=== PATIENT | male | born 1950 | race Caucasian/White ===

== ENCOUNTER 2016-10-31 11:03 | Inpatient (IN) ==
[2016-10-31 12:10] LABS: MANUAL DIFF NEEDED? NO
[2016-10-31 12:21] LABS: BASO% 0.7 % (0.0-0.8); EOS# 0.16 X1000 (0.0-0.7); EOS% 2.9 % (0.0-10.0); HEMATOCRIT 37.5 % (42.0-52.0); HEMOGLOBIN 11.8 g/dL (14.0-18.0); LYMPH# 0.76 X1000 (1.2-3.4); LYMPH% 13.6 % (20.5-51.1); MCH 31.5 PG (27-31); MCHC 31.5 g/dL (33-37); MONO# 0.69 X1000 (0.11-0.59); MONO% 12.3 % (1.7-9.3); MPV 10.6 FL (7.4-10.4); NEUT% 70.5 % (42.2-75.2); PLT 250 X1000 (130-400); RBC 3.75 XMIL (4.7-6.1)
[2016-10-31 12:25] LABS: INR 1.45; PROTIME 15.4 Seconds (9.2-11.7)
[2016-10-31] MEDS ORDERED: DILAUDID ONE (12:44)
[2016-10-31] MEDS ORDERED: ZOFRAN ONE (12:44)
[2016-10-31] MEDS ORDERED: DILAUDID IV ONE (12:45)
[2016-10-31 12:52] LABS: AGAP 11; ALBUMIN 3.2 g/dL (3.5-5.0); ALKALINE PHOSPHATASE 118 U/L (32-122); BUN 23 mg/dL (8-22); CALCIUM 8.9 mg/dL (8.8-10.2); CHLORIDE 92 mmol/L (98-107); COSMO 279; GOT 19 U/L (10-34); GPT 13 U/L (10-44); POTASSIUM 4.5 mmol/L (3.5-5.1); SODIUM 138 mmol/L (136-145); TCO2 35 mmol/L (25-35); TOTAL BILIRUBIN 1.24 mg/dL (0.20-1.00); TOTAL PROTEIN 7.3 g/dL (6.3-8.3)
--- NOTE | 2016-10-31 13:58 | HISTORY AND PHYSICAL ---
HISTORY OF PRESENT ILLNESS: This is a 65-year-old, just recently discharged from this institution on 10/29 to [facility]. By his report, he has had continued swelling in his legs and scrotum, unable to void and concerned about the increased swelling, was sent back over here. This is a 65-year-old who has a history of chronic lower extremity venous stasis, severe, peripheral arterial disease, diastolic heart failure. History of chronic DVTs and PEs. Most recently diagnosed with right atrial appendage thrombus and pulmonary embolus, treated at [facility]. He is currently on Coumadin therapy. Was discharged from [facility] about 3 weeks ago and then he came here to our hospital on 10/10/2016. At the time of discharge from [facility], was discharged on Coumadin therapy. Increasing shortness of breath was his complaint. He returns now with increased swelling in his scrotum, unable to void. Increased swelling in his legs. Unable to walk very well. REVIEW OF PAST MEDICAL HISTORY: 1. COPD on home O2. 2. History of chronic PE and DVT status post [place] filter. Chronic anticoagulation. 3. Diastolic heart failure. 4. Severe PAD. Chronic lower extremity venous stasis. 5. Morbid obesity. PAST SURGICAL HISTORY: Left knee replacement. Umbilical hernia repair. [place] filter. SOCIAL HISTORY: Patient quit smoking some time ago. He is at [facility]. Just sent there on the . Does not smoke or drink or use drugs. FAMILY HISTORY: Noncontributory. REVIEW OF SYSTEMS: His main complaint is swelling. HEENT: Unremarkable. Respiratory: Says his breathing is okay. GI/: He is mainly concerned about swelling and inability to void. No change in bowels. No blood in the bowels. No dark, tarry stools. Chest/Cardiac: He denies any chest pain or palpitations. Neurologic: No focal neurologic complaints. PHYSICAL EXAMINATION: VITAL SIGNS: Temperature 97.4, pulse 80, respirations 20, blood pressure 106/72. LUNGS: Clear in all lung maldonado. CARDIOVASCULAR: Regular rate without murmur or S3. ABDOMEN: Soft. SKIN: Warm and dry. INTEGUMENT/EXTREMITIES: He has marked edema that goes really from his waist, posterior upper thoracic area and flanks, and swelling down in his legs and scrotum. Dr. Vo was able to put a Stuart catheter in. HEIGHT/WEIGHT: Height is 5 feet 2 inches, weight is 300 pounds. LAB: White count 5600, hematocrit was 37, platelet count 250,000. Sodium 138, potassium 4.5, chloride 92, BUN 23, creatinine 1.2. Blood sugar 93, albumin is 3.2. ProTime is 15.4, INR 1.45. ASSESSMENT AND PLAN: 1. Chronic venous stasis. Diastolic dysfunction. Anasarca going from his waist down. We need to try and diurese this off. His kidney function appears to be good. Creatinine 1.2. We are going to put him on 40 of Lasix IV q.12. We will restrict the input to less than 1500 mL a day and see if we can pull off some of this fluid. Will try and put some stockings on. 2. History of pulmonary thromboembolism. [place] filter. History of multiple deep vein thromboses. He needs to stay on anticoagulation and this is probably part of his problem. So we will increase the Coumadin. I am going to put him on full dose Lovenox for now until his Pro-time is above 20, his INR above 2. 3. Diastolic heart failure, aware. 4. Obesity. DIAGNOSTIC STUDIES: Note he had a pulmonary arteriogram on 09/11/2016. Questionable tiny filling defect in a high order branch of the left pulmonary artery. Small filling defect in the right atrial appendage. Thrombus should be considered. Cardiomegaly. There is a noncalcified nodule 1.1 cm left lung base. Moderate ascites and anasarca. Echocardiogram. Interventricular septum was 1.2. Left ventricular posterior wall 1.2. Diastolic diameter 4.6 cm. Left atrium 4 cm. Right ventricle dilated 6.6 cm. Normal left ventricular cavity size. Ejection fraction 55%. Right ventricle severely dilated with severely reduced right ventricular systolic function. There is bilateral enlargement, right atrium enlarged. Pulmonic systolic pressure is 64-70.
[2016-10-31 14:19] LABS: URINE MICRO REVIEW NEEDED? NO; URINE SOURCE CATH
[2016-10-31 14:22] LABS: BILIRUBIN URINE NEGATIVE (NEGATIVE); BLOOD URINE NEGATIVE (NEGATIVE); COLOR YELLOW; GLUCOSE URINE NEGATIVE (NEGATIVE); LEUKOCYTES URINE TRACE (NEGATIVE); NITRITE URINE NEGATIVE (NEGATIVE); PH URINE 5.5; PROTEIN URINE TRACE mg/dL (NEGATIVE); SP GRAVITY URINE 1.015; TURBIDITY URINE CLEAR (CLEAR); UR EPITHELIAL CELLS <10 /HPF (<10); URINE BACTERIA NEGATIVE /HPF; URINE CULTURE NEEDED? YES; URINE RBC <10 /HPF (<10); URINE WBC <10 /HPF (<10); UROBILINOGEN URINE NORMAL (NORMAL)
--- NOTE | 2016-10-31 14:25 | PROVIDER DOCUMENTATION ---
HPI-Male Problem - General Chief Complaint: Male Stated Complaint: male gu, cellulitis to lower extremity Time Seen by Provider: 10/31/16 11:15 Source: patient Allergies/Adverse Reactions: Patient Allergies Allergy/AdvReac Type Severity Reaction Status Date / Time Penicillins Allergy RASH Verified 10/31/16 11:16 Home Medications: Albuterol 2.5MG/Ipratrop 0.5MG [Duoneb (A & A)] 3 ml INH RTTID 10/10/16 Furosemide [Lasix] 80 mg PO DAILY 10/10/16 Guaifenesin [Mucus ER] 600 mg PO BID 10/10/16 Hydrocodone/Acetaminophen [Cosby 7.5-325 Tablet] 1 each PO Q4-6H PRN PRN - History of Present Illness-Male Nature of Presenting Problem: Discharged 10/29 after admission for CHF and respiratory failure. Was at [facility] and has had increasing edema of legs and scrotum. Increasingly painful. Has had difficulty with urination since last night. Location of Complaint: reports: groin, scrotal Radiation: reports: suprapubic Quality of Pain: reports: aching, indigestion Onset/Duration: reports: gradual, other (since discharge) Review of Systems - Adult - REVIEW OF SYSTEMS - ADULT Constitutional: reports: see HPI Eyes: reports: no symptoms reported Ears, Nose, Mouth & Throat: reports: no symptoms reported Cardiovascular: reports: chest pain, irregular heart rate Respiratory: reports: cough, shortness of breath Gastrointestinal: reports: no symptoms reported Genitourinary: reports: see HPI, dysuria Musculoskeletal: reports: muscle aches Integumentary: reports: other (marked edema of legs with lower leg ulceration) Past History - Adult - PAST MEDICAL HISTORY-ADULT Review of Records: reports: Old Records Reviewed, Medications Reviewed Major Childhood Illnesses: reports: denies history Cardiovascular: reports: A-Fib, blood clots, CHF, HTN Respiratory: reports: COPD - PRIOR SURGERIES/PROCEDURES Surgical/Procedure History: reports: hernia repair - IMMUNIZATION STATUS Childhood Immunizations: See Nurse Assessment Flu Vaccine: See Nurse Assessment - FAMILY HISTORY Family History: reviewed, not pertinent Physical Exam-General - PHYSICAL EXAM-ADULT Initial Vital Signs Reviewed: Yes - CONSTITUTIONAL General Appearance: alert, no apparent distress - EYES Eyes: PERRL/EOMI - HEAD, EARS, NOSE, MOUTH & THROAT [facility]: normal ENT inspection - NECK Neck: non-tender, full range of motion, supple, normal inspection - RESPIRATORY Respiratory: chest non-tender, lungs clear, normal breath sounds - CARDIOVASCULAR Cardiovascular: no JVD, no murmur, irregularly irregular - GASTROINTESTINAL (ABDOMEN) Abdominal Exam: normal bowel sounds, soft, tenderness (lower abdominal tenderness) - GENITOURINARY Male Genitalia: scrotal swelling (dramatic scrotal swelling, diffuse tenderness to palp, urethra not visualized. erythema L lateral scrotum) - MUSCULOSKELETAL Back Exam: normal inspection, no CVA tenderness Extremity: swelling (edema to thighsB, B lower legs with dressings for ulcerations) - NEUROLOGIC Neurologic: no motor/sensory deficits Progress - PLAN OF CARE/RESULTS Progress/Plan/Lab Results: Laboratory Tests 10/31/16 10/31/16 10/31/16 12:00 12:00 12:00 WBC 5.60 RBC 3.75 L Hgb 11.8 L Hct 37.5 L MCV 100.0 H MCH 31.5 H MCHC 31.5 L RDW Std Deviation 15.2 H Plt Count 250 MPV 10.6 H Immature Gran % (Auto) 0.0 Neut % (Auto) 70.5 Lymph % (Auto) 13.6 L [place] % (Auto) 12.3 H Eos % (Auto) 2.9 Baso % (Auto) 0.7 Immature Gran # (Auto) 0.00 Neut # 3.95 Lymph # 0.76 L [place] # 0.69 H Eos # 0.16 Baso # 0.04 PT 15.4 H INR 1.45 Sodium 138 Potassium 4.5 Chloride 92 L Carbon Dioxide 35 Anion Gap 11 BUN 23 H Creatinine 1.2 Estimated GFR/1.73 m2 > 60 BUN/Creatinine Ratio 19 Glucose 93 Calculated Osmolality 279 Calcium 8.9 Total Bilirubin 1.24 H AST 19 ALT 13 Alkaline Phosphatase 118 Total Protein 7.3 Albumin 3.2 L Globulin 4.1 Albumin/Globulin Ratio 0.8 Urine Source Urine Color Urine Turbidity Urine pH Ur Specific [place] Urine Protein Ur Glucose (Stick) Ur Ketones (Stick) Urine Blood Urine Nitrite Urine Bilirubin Urobilinogen Dipstick Urine Leukocytes Urine WBC (Auto) Urine RBC (Auto) U Epithel Cells (Auto) Urine Bacteria (Auto) 10/31/16 14:00 WBC RBC Hgb Hct MCV MCH MCHC RDW Std Deviation Plt Count MPV Immature Gran % (Auto) Neut % (Auto) Lymph % (Auto) [place] % (Auto) Eos % (Auto) Baso % (Auto) Immature Gran # (Auto) Neut # Lymph # [place] # Eos # Baso # PT INR Sodium Potassium Chloride Carbon Dioxide Anion Gap BUN Creatinine Estimated GFR/1.73 m2 BUN/Creatinine Ratio Glucose Calculated Osmolality Calcium Total Bilirubin AST ALT Alkaline Phosphatase Total Protein Albumin Globulin Albumin/Globulin Ratio Urine Source CATH Urine Color YELLOW Urine Turbidity CLEAR Urine pH 5.5 Ur Specific [place] 1.015 Urine Protein TRACE A Ur Glucose (Stick) NEGATIVE Ur Ketones (Stick) NEGATIVE Urine Blood NEGATIVE Urine Nitrite NEGATIVE Urine Bilirubin NEGATIVE Urobilinogen Dipstick NORMAL Urine Leukocytes TRACE A Urine WBC (Auto) <10 Urine RBC (Auto) <10 U Epithel Cells (Auto) <10 Urine Bacteria (Auto) NEGATIVE Vital Signs Temp Pulse Resp BP Pulse Ox 10/31/16 16:18 105 H 16 93 L 10/31/16 15:24 98.2 F 105 H 16 97/70 91 L 10/31/16 11:10 97.4 F L 80 20 106/72 100 Penicillins Allergy (Verified 10/31/16 11:16) RASH Albuterol 2.5MG/Ipratrop 0.5MG [Duoneb (A & A)] 3 ml INH RTTID 10/10/16 Furosemide [Lasix] 80 mg PO DAILY 10/10/16 Guaifenesin [Mucus ER] 600 mg PO BID 10/10/16 Hydrocodone/Acetaminophen [[place] 7.5-325 Tablet] 1 each PO Q4-6H PRN PRN Albuterol 2.5MG/Ipratrop 0.5MG [Duoneb (A & A)] 3 ml INH Q2H PRN PRN #0 neb CefUROXIME [Ceftin] 500 mg PO Q12H #0 tablet 10/29/16 Digoxin [Lanoxin] 125 microgm PO DAILY #0 tablet 10/29/16 Doxycycline 100 mg PO BID #0 capsule 10/29/16 Ergocalciferol (Vitamin D2) [Vitamin D] 50,000 unit PO Q7D #0 capsule 10/29/16 Folic Acid 1 mg PO DAILY #0 tablet 10/29/16 Isosorbide Dinitrate [Isordil] 10 mg PO BID #0 tablet 10/29/16 Metoprolol [Lopressor] 25 mg PO BID #0 tablet 10/29/16 Warfarin [Coumadin] 5 mg PO QHS #0 tablet 10/29/16 Dietary Diet Heart Healthy Diet Start SatOct 31 1436 I&O 10/30/16 10/31/16 11/01/16 06:59 06:59 06:59 Output Total 420 Balance -420 Laboratory 10/31/16 10/31/16 10/31/16 14:00 12:00 12:00 WBC RBC Hgb Hct MCV MCH MCHC RDW Std Deviation Plt Count MPV Immature Gran % (Auto) Neut % (Auto) Lymph % (Auto) [place] % (Auto) Eos % (Auto) Baso % (Auto) Immature Gran # (Auto) Neut # Lymph # [place] # Eos # Baso # PT 15.4 H INR 1.45 Sodium 138 Potassium 4.5 Chloride 92 L Carbon Dioxide 35 Anion Gap 11 BUN 23 H Creatinine 1.2 Estimated GFR/1.73 m2 > 60 BUN/Creatinine Ratio 19 Glucose 93 Calculated Osmolality 279 Calcium 8.9 Total Bilirubin 1.24 H AST 19 ALT 13 Alkaline Phosphatase 118 Total Protein 7.3 Albumin 3.2 L Globulin 4.1 Albumin/Globulin Ratio 0.8 Urine Source CATH Urine Color YELLOW Urine Turbidity CLEAR Urine pH 5.5 Ur Specific [place] 1.015 Urine Protein TRACE A Ur Glucose (Stick) NEGATIVE Ur Ketones (Stick) NEGATIVE Urine Blood NEGATIVE Urine Nitrite NEGATIVE Urine Bilirubin NEGATIVE Urobilinogen Dipstick NORMAL Urine Leukocytes TRACE A Urine WBC (Auto) <10 Urine RBC (Auto) <10 U Epithel Cells (Auto) <10 Urine Bacteria (Auto) NEGATIVE 10/31/16 12:00 WBC 5.60 RBC 3.75 L Hgb 11.8 L Hct 37.5 L MCV 100.0 H MCH 31.5 H MCHC 31.5 L RDW Std Deviation 15.2 H Plt Count 250 MPV 10.6 H Immature Gran % (Auto) 0.0 Neut % (Auto) 70.5 Lymph % (Auto) 13.6 L [place] % (Auto) 12.3 H Eos % (Auto) 2.9 Baso % (Auto) 0.7 Immature Gran # (Auto) 0.00 Neut # 3.95 Lymph # 0.76 L [place] # 0.69 H Eos # 0.16 Baso # 0.04 PT INR Sodium Potassium Chloride Carbon Dioxide Anion Gap BUN Creatinine Estimated GFR/1.73 m2 BUN/Creatinine Ratio Glucose Calculated Osmolality Calcium Total Bilirubin AST ALT Alkaline Phosphatase Total Protein Albumin Globulin Albumin/Globulin Ratio Urine Source Urine Color Urine Turbidity Urine pH Ur Specific [place] Urine Protein Ur Glucose (Stick) Ur Ketones (Stick) Urine Blood Urine Nitrite Urine Bilirubin Urobilinogen Dipstick Urine Leukocytes Urine WBC (Auto) Urine RBC (Auto) U Epithel Cells (Auto) Urine Bacteria (Auto) - EKG 1 Time of EKG reading by physician:: 14:23 EKG Read and Signed by:: Savannah Quintanilla EKG Interpretation (*Must complete 3 of following elements*): Abnormal Rate: 87 Rhythm: atrial flutter with variable block QRS: RBB - CONSULTS/PCP/HOSPITALIST Notification #1 *Consult/PCP/Hospitalist*: urology inserted miller cather Consult Disposition: Will see in ED #2 Consult: hospitalist notified- Dr Gee to see patient Departure - Departure Time of Disposition Order: 14:00 DIAGNOSIS: Scrotal edema, CHF (congestive heart failure) Disposition: ADMITTED INPATIENT 09 Certified Medical Emergency: Emergent Condition: Poor
[2016-10-31] MEDS ORDERED: ZOFRAN IV PRN (14:32)
[2016-10-31] MEDS ORDERED: TYLENOL PO PRN (14:32)
[2016-10-31] MEDS: NORCO-7.5 PO PRN ×2 (15:02→21:51)
[2016-10-31] MEDS: DUONEB (A & A) INH SCH ×2 (16:17→21:24)
[2016-10-31] MEDS: CEFTIN PO SCH (17:58)
[2016-10-31] MEDS: LASIX IV SCH (21:50)
[2016-10-31] MEDS: DOXYCYCLINE PO SCH (21:50)
[2016-10-31] MEDS: LOVENOX SUBQ SCH (21:50)
[2016-10-31] MEDS: COUMADIN PO SCH (21:50)
[2016-10-31] MEDS: MUCINEX PO SCH (21:51)
[2016-10-31] MEDS: LOPRESSOR PO SCH (21:53)
[2016-10-31] MEDS: ISORDIL PO SCH (21:53)
[2016-11-01 05:54] LABS: MANUAL DIFF NEEDED? NO
[2016-11-01 05:58] LABS: BASO% 0.6 % (0.0-0.8); EOS# 0.17 X1000 (0.0-0.7); EOS% 2.5 % (0.0-10.0); LYMPH# 0.98 X1000 (1.2-3.4); LYMPH% 14.2 % (20.5-51.1); MCH 31.5 PG (27-31); MCHC 31.6 g/dL (33-37); MCV 99.7 FL (81-99); MONO# 0.91 X1000 (0.11-0.59); MONO% 13.2 % (1.7-9.3); MPV 10.6 FL (7.4-10.4); NEUT% 69.5 % (42.2-75.2); PLT 266 X1000 (130-400); RBC 3.81 XMIL (4.7-6.1)
[2016-11-01 06:08] LABS: ALBUMIN 3.1 g/dL (3.5-5.0); CALCIUM 8.9 mg/dL (8.8-10.2); POTASSIUM 4.3 mmol/L (3.5-5.1); PREALBUMIN 7.4 mg/dL (20-40); TOTAL BILIRUBIN 1.33 mg/dL (0.20-1.00); TOTAL PROTEIN 7.3 g/dL (6.3-8.3)
[2016-11-01 06:28] LABS: FREE T4 1.15 ng/dL (0.93-1.70)
[2016-11-01] MEDS: CEFTIN PO SCH ×2 (06:30→17:39)
[2016-11-01] MEDS: LANOXIN PO SCH (06:31)
[2016-11-01] MEDS: NORCO-7.5 PO PRN ×2 (06:35→13:17)
[2016-11-01] MEDS: PRILOSEC PO SCH (06:35)
[2016-11-01 06:39] LABS: INR 1.49; PROTIME 15.9 Seconds (9.2-11.7); PTT 34.2 Seconds (22.0-36.0)
--- NOTE | 2016-11-01 06:46 | EKG Report ---
Test Performed on : 11/01/2016 06:11:19 AM Test Reason : chest pain Blood Pressure : / mmHG Vent. Rate : 091 BPM Atrial Rate : 256 BPM P-R Int : 000 ms QRS Dur : 194 ms QT Int : 428 ms P-R-T Axes : 000 163 013 degrees QTc Int : 526 ms Atrial flutter. with variable AV block. Right bundle branch block Abnormal ECG When compared with ECG of 31-OCT-2016 14:09, (Unconfirmed) T wave inversion less evident in Anterior leads Confirmed by Renetta Babcock MD ([id number]) on 11/01/2016 10:15:19 AM
--- NOTE | 2016-11-01 08:24 | PROGRESS NOTE ---
DATE: 11/01/2016 SUBJECTIVE: Mr. Cohen does feel better. He can tell the swelling has gone down in both the scrotum and his flanks, so, he feels markedly better than yesterday. OBJECTIVE: Vital Signs: Afebrile, temp 98 degrees. Pulse 89. Respirations 20. Blood pressure 90/68. Lungs: Clear in all lung maldonado. Cardiovascular: Regular rhythm and rate without murmur or S3. Abdomen: Soft. Skin: Warm and dry. INTAKE AND OUTPUT: Good urine output. LABORATORY DATA: White count 6890. Hematocrit 38. Platelet count 266,000. Chemistry: Sodium 133, potassium 4.3, chloride 90, bicarb 35, BUN 24, creatinine 1.3. ASSESSMENT AND PLAN: 1. Anasarca, marked swelling in the scrotum, his legs, and flank. Continue diuresis. Renal function looks good. 2. History of pulmonary thromboembolism. He has a [place] filter, is anticoagulated. Will increase his Coumadin and continue full dose Lovenox until Coumadin is therapeutic, for ProTime of 20, INR above 2. 3. Diastolic heart failure, aware. 4. Obesity. 5. General weakness, deconditioning. Continue physical therapy. 6. Chronic venous stasis, chronic venous stasis ulcers. Make sure Wound Care is following him for his feet.
[2016-11-01] MEDS: LASIX IV SCH ×2 (10:13→22:54)
[2016-11-01] MEDS: LOVENOX SUBQ SCH ×2 (10:16→22:54)
[2016-11-01] MEDS: MUCINEX PO SCH ×2 (10:18→22:53)
[2016-11-01] MEDS: DOXYCYCLINE PO SCH ×2 (10:20→22:52)
[2016-11-01] MEDS: LOPRESSOR PO SCH ×2 (10:21→22:54)
[2016-11-01] MEDS: FOLIC ACID PO SCH (10:21)
[2016-11-01] MEDS: ISORDIL PO SCH ×2 (10:22→22:54)
[2016-11-01] MEDS: DUONEB (A & A) INH SCH ×3 (10:56→19:17)
[2016-11-01] MEDS ORDERED: CALMOSEPTINE OINTMENT TOP PRN (13:29)
--- NOTE | 2016-11-01 18:52 | CONSULTATION ---
DATE OF CONSULTATION: 10/31/2016 CONSULTING PHYSICIAN: Emergency department. Consultation for Stuart catheter placement, scrotal swelling and penile swelling. HISTORY OF PRESENT ILLNESS: A 65-year-old male, whom I have known with history of heart failure, severe peripheral vascular disease, lower extremity venous stasis who was recently hospitalized secondary to a pulmonary embolus as well as shortness of breath and lower extremity swelling. He was [facility] from [facility] to [facility]. He reports continuous swelling in his legs and scrotum with eventual inability to void for 24 hours. He was brought to the emergency room. The nursing staff reportedly tried to introduce Stuart catheter but due to penile and scrotal edema were unable to do so. Urology was consulted. The patient denies history of surgeries or previous urologic problems. He reports feeling full and uncomfortable and desires intervention. PAST MEDICAL HISTORY: 1. Deep venous thrombosis and pulmonary embolus. 2. COPD. 3. Heart failure. 4. Peripheral vascular disease. 5. Obesity. PAST SURGICAL HISTORY: Left knee arthroplasty, umbilical hernia repair, IVC filter. ALLERGIES: Penicillins. HOME MEDICATIONS: Lasix, Coumadin, DuoNeb, Ceftin, vitamin D, [place], metoprolol, Prilosec, omeprazole, digoxin, folic acid. SOCIAL HISTORY: Former smoker, denies alcohol or drug use. FAMILY HISTORY: Negative for malignancies. REVIEW OF SYSTEMS: Reviewed and 12 systems negative except for HPI. PHYSICAL EXAMINATION: T 97.4, P 80, BP 106/72.General: No acute distress, somewhat anxious male. HEENT: Normocephalic, atraumatic. Cardiovascular: Regular rhythm. Pulmonary: Bilateral breath sounds. Abdomen: Protuberant, nontender to palpation. : Bladder is tender to palpation. Extreme penile edema without ability to visualize glans penis, significant scrotal edema with testes nonpalpable. Lymphatic: No groin lymphadenopathy appreciated. Dermatologic: Significant discoloration to bilateral lower extremities. No obvious skin rashes noted otherwise. Neurologic: Alert and oriented x3. Psychiatric: Appropriate mood and affect. PERTINENT LABORATORY DATA: White cell count of 6000, hematocrit of 37.5, creatinine of 1.2. PERTINENT IMAGES: None. ASSESSMENT AND PLAN: 65-year-old male with heart failure with significant lower extremity and scrotal and penile edema. The patient was extremely uncomfortable and I ordered Dilaudid intravenously. Following that, I was able to compress the scrotum manually as well as the penis. We were still unable to visualize the glans penis. I then had to use the finger and introduced it through his foreskin and palpate the glans penis. After multiple attempts, I was able to introduce Stuart catheter over my finger and guided it into his urethra. Clear urine was returned. The 16-Kazakh Stuart catheter was inflated with 10 mL of sterile water into the balloon. It was connected to gravity drainage. The patient was educated that his scrotal edema would resolve with scrotal support as well as measures to decrease his fluid overload. PLAN: 1. Keep Stuart catheter to gravity drainage for now. 2. Discontinue when appropriate by primary team. 3. Call with any questions. Thank you for the consultation.
[2016-11-01] MEDS: COUMADIN PO SCH (22:53)
[2016-11-02 06:25] LABS: AGAP 11; BUN 22 mg/dL (8-22); CALCIUM 8.7 mg/dL (8.8-10.2); CHLORIDE 92 mmol/L (98-107); COSMO 277; MAGNESIUM 1.8 mg/dL (1.5-2.7); POTASSIUM 4.5 mmol/L (3.5-5.1); SODIUM 137 mmol/L (136-145); TCO2 34 mmol/L (25-35)
[2016-11-02] MEDS: LANOXIN PO SCH (07:53)
[2016-11-02] MEDS: PRILOSEC PO SCH (07:55)
[2016-11-02] MEDS: CEFTIN PO SCH ×2 (07:55→18:47)
[2016-11-02] MEDS: DUONEB (A & A) INH SCH ×3 (08:45→20:14)
[2016-11-02] MEDS: LASIX IV SCH ×2 (10:02→22:18)
[2016-11-02] MEDS: LOPRESSOR PO SCH ×2 (10:04→22:17)
[2016-11-02] MEDS: ISORDIL PO SCH ×2 (10:04→22:19)
[2016-11-02] MEDS: FOLIC ACID PO SCH (10:05)
[2016-11-02] MEDS: DOXYCYCLINE PO SCH ×2 (10:05→22:19)
[2016-11-02] MEDS: MUCINEX PO SCH ×2 (10:05→22:18)
[2016-11-02] MEDS: LOVENOX SUBQ SCH ×2 (10:05→22:19)
--- NOTE | 2016-11-02 13:06 | PROGRESS NOTE ---
DATE: 11/02/2016 He can tell swelling is going down. He is feeling better. Leg is a little bit more mobile. He would like to start trying to sit up and of course we have physical therapy going to help with that. Denies any chest pain. Denies any real pain at all. Scrotal swelling has gone down. The swelling in his flank and leg seemed to have diminished as well. PHYSICAL EXAMINATION: Temp 98.1 degrees, pulse 96 degrees, respirations 18, blood pressure 99/71.Lungs: Clear in all lung maldonado. Cardiovascular: Regular rhythm and rate without murmur or S3. Abdomen: Soft, nontender. He has a 2+ edema really from his waist down to his ankle which is slowly improving. Scrotal swelling is better Stuart catheter still in place. Urine output was 2200 mL which is good. LAB: From yesterday reviewed. Electrolytes from today sodium 137, potassium 4.5, chloride 92, bicarb 22, creatinine 1.2. So it is staying stable. Albumin was 3.1. ASSESSMENT AND PLAN: 1. Anasarca from his from his ankles to his waist. He is improving with diuresis. His renal function appears to be stable. Blood pressure is low but adequate profusion, systolic 90s to 100. 2. History of pulmonary thromboembolism. He has a [place] filter. He is on Coumadin. Continue to watch his pro time. We have given him Lovenox until Coumadin level is therapeutic with INR above 2. 3. Diastolic heart failure. 4. Obesity. 5. General weakness, deconditioning. 6. Chronic venous stasis. It looks like we are making improvement. We will follow his electrolytes. Continue present orders. I am going to ask physical therapy to start working on his strength and range of motion.
[2016-11-02] MEDS: COUMADIN PO SCH (22:18)
[2016-11-03] MEDS: LANOXIN PO SCH (06:28)
[2016-11-03] MEDS: CEFTIN PO SCH ×3 (06:29→19:01)
[2016-11-03] MEDS: PRILOSEC PO SCH (06:29)
[2016-11-03] MEDS: DUONEB (A & A) INH SCH ×3 (08:08→21:05)
[2016-11-03] MEDS: MUCINEX PO SCH ×2 (11:12→20:45)
[2016-11-03] MEDS: FOLIC ACID PO SCH (11:12)
[2016-11-03] MEDS: LOVENOX SUBQ SCH ×2 (11:12→20:46)
[2016-11-03] MEDS: LOPRESSOR PO SCH ×2 (11:12→20:44)
[2016-11-03] MEDS: DOXYCYCLINE PO SCH ×2 (11:13→20:46)
[2016-11-03] MEDS: LASIX IV SCH ×2 (11:13→20:46)
[2016-11-03] MEDS: ISORDIL PO SCH ×2 (11:13→20:43)
--- NOTE | 2016-11-03 13:56 | PROGRESS NOTE ---
DATE: 11/03/2016 SUBJECTIVE: Mr. Cohen is better. Swelling is going down slowly but he can tell both in the scrotum and his waste and his legs. His legs unwrapped at this time. He has chronic venous stasis eczematous dermatosis on both legs all the way up to his knees and on his feet. Pedal edema has diminished. There are some cracks in the skin as well that do not appear infected at this point. OBJECTIVE: Vital signs: Afebrile, temperature 97.4 degrees, pulse 97, respirations 18, blood pressure 128/84. Lungs: Clear in all lung maldonado. Cardiovascular: Regular rhythm and rate without murmur or S3. Abdomen: Soft. Skin: Is warm and dry. LAB: White count 6890, hematocrit 38, platelet count 266,000. Sodium 137, potassium 4.5, chloride 92, bicarb 34, BUN 22, creatinine 1.2. Liver functions unremarkable. ASSESSMENT AND PLAN: This is a 65-year-old male history of heart failure, severe peripheral vascular disease, chronic venous stasis dermatosis, been treating him with [place] boots topically. He has had a history of a Jessica filter, pulmonary embolus. He has chronic obstructive pulmonary disease, peripheral vascular disease, morbid obesity and I believe it is mainly diastolic heart failure. We will continue the Lasix, try and get more fluid off. So far doing well. Kidney function appears to be tolerating well. Creatinine 1.2. His I's and O's he has had over 4 L output yesterday, today 2500 already so we are making good progress. Continue physical therapy, try get some strength back in. He is on doxycycline 100 mg b.i.d., he is on Ceftin 500 mg q.12, Lopressor 25 mg b.i.d., we got him on Lovenox full dose right now. Recheck his pro time. We can stop that when INR above 2 and we will check his digitalis level as well. He is on Lasix 40 mg IV q.12, Coumadin presently 6 mg daily.
[2016-11-03] MEDS: NORCO-7.5 PO PRN (15:26)
[2016-11-03] MEDS: COUMADIN PO SCH (20:44)
[2016-11-04 05:21] LABS: INR 2.09
[2016-11-04 05:24] LABS: PROTIME 22.3 Seconds (9.2-11.7)
[2016-11-04] MEDS: LANOXIN PO SCH ×2 (05:48→06:03)
[2016-11-04] MEDS: PRILOSEC PO SCH ×2 (05:48→06:03)
[2016-11-04] MEDS: CEFTIN PO SCH (05:48)
[2016-11-04] MEDS: DUONEB (A & A) INH SCH ×3 (09:27→21:18)
[2016-11-04] MEDS: DOXYCYCLINE PO SCH (11:22)
[2016-11-04] MEDS: LASIX IV SCH ×3 (11:22→23:01)
[2016-11-04] MEDS: MUCINEX PO SCH ×3 (11:22→22:59)
[2016-11-04] MEDS: LOPRESSOR PO SCH ×2 (11:23→23:00)
[2016-11-04] MEDS: FOLIC ACID PO SCH (11:23)
[2016-11-04] MEDS: LOVENOX SUBQ SCH ×3 (11:23→22:59)
[2016-11-04] MEDS: ISORDIL PO SCH ×2 (11:23→23:01)
--- NOTE | 2016-11-04 17:49 | PROGRESS NOTE ---
DATE: 11/04/2016 SUBJECTIVE: Mr. Cohen feels better. The swelling has gone down. His legs the venous stasis appears improved. No active skin infection that I can detect. Scrotum swelling is down as well. OBJECTIVE: Vital signs: Temperature 98.1 degrees, pulse 70, respirations 16, blood pressure 107/76. Lungs: Are clear in all lung maldonado. Cardiovascular: Regular rhythm and rate without murmur or S3. Abdomen: Soft. Skin: Is warm and dry. LAB: From today. Last electrolytes on the . I am going to check some again in the morning. Serum creatinine was 1.2. ASSESSMENT AND PLAN: 1. Anasarca, scrotal swelling. He has edema from the ankles up to the midwaist. We are consistently getting a couple liters off every day. Conservative estimate that he probably had at least 40 L positive so continue to diurese. 2. Morbid obesity. 3. Chronic venous stasis treating him topically. His feet and legs look better. 4. He has a [place] filter from previous pulmonary emboli. He is on anticoagulation for Lovenox because his Coumadin was subtherapeutic. His PT now is 22 so I will probably decrease the Lovenox tomorrow. Have reviewed orders. I do not see any change at this time this.
[2016-11-04] MEDS: COUMADIN PO SCH ×2 (19:47→22:59)
[2016-11-05 05:20] LABS: MANUAL DIFF NEEDED? NO
[2016-11-05 05:26] LABS: BASO% 0.5 % (0.0-0.8); EOS# 0.15 X1000 (0.0-0.7); EOS% 2.4 % (0.0-10.0); HEMATOCRIT 35.9 % (42.0-52.0); HEMOGLOBIN 11.8 g/dL (14.0-18.0); LYMPH# 1.14 X1000 (1.2-3.4); LYMPH% 18.4 % (20.5-51.1); MCH 32.2 PG (27-31); MCHC 32.9 g/dL (33-37); MCV 97.8 FL (81-99); MONO# 0.83 X1000 (0.11-0.59); MONO% 13.4 % (1.7-9.3); MPV 10.7 FL (7.4-10.4); NEUT% 65.3 % (42.2-75.2); PLT 273 X1000 (130-400); RBC 3.67 XMIL (4.7-6.1)
[2016-11-05 05:34] LABS: INR 2.59; PROTIME 27.7 Seconds (9.2-11.7)
[2016-11-05 05:37] LABS: AGAP 12; ALKALINE PHOSPHATASE 111 U/L (32-122); BUN 17 mg/dL (8-22); CALCIUM 8.9 mg/dL (8.8-10.2); CHLORIDE 92 mmol/L (98-107); COSMO 275; GOT 27 U/L (10-34); GPT 14 U/L (10-44); MAGNESIUM 1.7 mg/dL (1.5-2.7); POTASSIUM 3.8 mmol/L (3.5-5.1); SODIUM 137 mmol/L (136-145); TCO2 33 mmol/L (25-35); TOTAL BILIRUBIN 1.09 mg/dL (0.20-1.00); TOTAL PROTEIN 7.2 g/dL (6.3-8.3)
[2016-11-05] MEDS: LANOXIN PO SCH (07:37)
[2016-11-05] MEDS: DUONEB (A & A) INH SCH (09:41)
[2016-11-05] MEDS: ISORDIL PO SCH ×2 (09:56→20:13)
[2016-11-05] MEDS: MUCINEX PO SCH ×2 (09:56→20:13)
[2016-11-05] MEDS: FOLIC ACID PO SCH (09:56)
[2016-11-05] MEDS: LOVENOX SUBQ SCH ×2 (09:56→20:13)
[2016-11-05] MEDS: LOPRESSOR PO SCH ×2 (09:56→20:13)
[2016-11-05] MEDS: LASIX IV SCH ×2 (09:56→20:13)
--- NOTE | 2016-11-05 12:28 | PROGRESS NOTE ---
DATE: 11/05/2016 Mr. Cohen is definitely feeling better. He would like to stop the breathing treatments. In his legs and waist you can tell the swelling has gone down. Chronic venostasis dermatosis is improved, less inflamed, less tender. Skin seems to be healing. OBJECTIVE: Temperature 97.5 degrees, pulse 47, respirations 16, blood pressure 131/85.Lungs: Are clear in all lung maldonado. Cardiovascular: Regular rhythm and rate without murmur or S3. Abdomen: Soft. Skin is warm and dry. Urine output is about 2 L from yesterday. LAB: White count 6200, hematocrit 35, platelet count 273,000. Chemistry sodium 137, potassium 3.8, chloride 92, BUN 17, creatinine 1.1. Albumin 3.0. ASSESSMENT AND PLAN: 1. Anasarca with scrotal swelling, swelling really from his waist down to his to his feet. This is improving with slow diuresis with IV Lasix. The skin appears to be healing up, scrotal swelling gone down. 2. Morbid obesity. 3. Chronic venostasis, treating him topically. 4. He has a history of Jessica filter. 5. History of pulmonary emboli. He is on the Coumadin which was subtherapeutic so we had put him on Lovenox. I will continue the Coumadin at 6 mg a day. His pro time, latest one was today and it was INR 2.59 so that looks good. We had stopped his Lovenox so I will stop his breathing treatments. Note that his serum creatinine is at 1.1 so it is stable.
[2016-11-05] MEDS: COUMADIN PO SCH (20:13)
[2016-11-06] MEDS: LASIX IV SCH ×3 (00:03→22:20)
[2016-11-06] MEDS: LANOXIN PO SCH ×2 (05:50→07:51)
[2016-11-06 06:34] LABS: INR 2.57; PROTIME 27.5 Seconds (9.2-11.7)
[2016-11-06] MEDS: NORCO-7.5 PO PRN ×2 (07:57→22:22)
[2016-11-06] MEDS: FOLIC ACID PO SCH (08:21)
[2016-11-06] MEDS: LOVENOX SUBQ SCH ×2 (08:21→22:20)
[2016-11-06] MEDS: ISORDIL PO SCH ×2 (08:21→22:22)
[2016-11-06] MEDS: MUCINEX PO SCH ×2 (08:21→22:20)
[2016-11-06] MEDS: LOPRESSOR PO SCH ×2 (08:21→22:21)
--- NOTE | 2016-11-06 09:46 | PROGRESS NOTE ---
DATE: 11/06/2016 SUBJECTIVE: He is better. He states he feels better. The swelling he can tell is going down. Scrotal swelling has diminished. He is complaining of a little bit of constipation. He is eating. OBJECTIVE: Vital signs: Temp 97.9 degrees, pulse 67, respirations 16, blood pressure 112/78. Lungs: Clear in all lung maldonado. Cardiovascular: Regular rhythm and rate without murmur or S3. Abdomen: Soft. Skin: Warm and dry. Good urine output. LAB: White count 6,200, hematocrit 35, platelet count 273,000. Sodium 137, potassium 3.9, chloride 92, BUN 17, creatinine 1.1. ASSESSMENT AND PLAN: 1. Anasarca and scrotal swelling, improved. Continue diuresis. Renal function is good. Clinically much better. He is much stronger. Continue physical therapy. 2. Morbid obesity. 3. Chronic venous stasis and chronic venous stasis dermatosis. His feet and legs look better, healing. 4. History of [place] filter. 5. History of pulmonary emboli. He is on Coumadin. His last PT was 27, so that looks good. I think we can stop his Lovenox, which I think we already did. He is on Coumadin 4 mg at bedtime. He is getting Lanoxin 125 mg a day. His digoxin level was 0.7. CBC looks good. Chemistries look good.
--- NOTE | 2016-11-06 13:04 | CONSULTATION ---
DATE OF CONSULTATION: 11/06/2016 REASON FOR CONSULTATION: Arrhythmia. HISTORY: Patient is a 65-year-old gentleman, very well known to our service. Mr. Cohen recently had a prolonged hospitalization for severe volume overload secondary to right heart failure as a combination of chronic veno-occlusive disease, pulmonary fibrosis and COPD with moderate to severe pulmonary hypertension. The patient had been discharged to rehabilitation but began to have some recurring swelling of the scrotal area. He re-presented for management of this. During this hospitalization the patient has been in atrial flutter with variable conduction. He has had several pauses the longest of which was 4.4 seconds. In general, his heart rate is running in the 60s however with 2-3:1 conduction. The patient has a history of paroxysmal atrial fibrillation. PAST MEDICAL HISTORY: Patient has recurring DVT. Again he has had recurring pulmonary emboli with recurrent veno-occlusive disease. He has chronic venous stasis. Patient has a severely dilated and weakened right heart with pulmonary artery pressures by echo estimated to be in the 70s. The patient has chronic atrial fibrillation which has been treated medically. The patient has a history of COPD, and is on home oxygen. He has morbid obesity. From a surgical standpoint, patient has had a knee replacement. He has had umbilical hernia repair. He has had [place] filter placement. SOCIAL HISTORY: Patient discontinued smoking many years ago. Denies alcohol or illicit drug use. FAMILY HISTORY: Noncontributory. REVIEW OF SYSTEMS: He has been in very poor health over the last few months. This is the 3rd hospitalization for volume overload.HEENT: Currently he denies headache. Denies visual abnormalities. Chest: Denies overt chest pain. He does not feel palpitations. Abdomen: No abdominal pain at this time. Denies diarrhea. Denies constipation. Extremities: He states that the swelling of the lower extremities is markedly improved but still remains mildly present. He remains weak in the lower extremities. Neurological: No history of seizures, syncope, or stroke. PHYSICAL EXAMINATION: General: This is a well-developed, obese male. He is awake and alert. He answers questions appropriately. HEENT: Benign. Neck: Supple. Chest: Bilateral breath sounds, which are clear. Cardiovascular: Reveals an irregular rate and rhythm at this time. I hear no obvious murmur. Abdomen: Positive bowel sounds. Nontender, nondistended. Of note, the scrotal area is severely edematous. Extremities: Lower extremities, there is very mild nonpitting edema. There is severe chronic venous stasis with chronic venous stasis changes noted. DIAGNOSTIC DATA: I have reviewed an EKG, indicating atrial flutter with variable conduction and an intraventricular conduction delay. LABORATORY WORK: At this time, white count 6, hemoglobin and hematocrit are 11 and 35, platelet count is 273,000. Sodium 137, potassium 3.8, chloride 92, BUN 17, creatinine 1.1. Digoxin level is 0.7. IMPRESSION: 1. Atrial flutter. The patient has variable conduction atrial flutter with some intermittent pauses. At this time, I would simply discontinue the digoxin. As an AV jasper blocking agent, this is most likely the cause of the variable conduction. We will continue metoprolol at its current dosage and follow clinically. Patient is maintained on chronic Coumadin therapy. 2. Right heart failure. The patient has severe chronic right heart failure. This is his 3rd admission for this condition. He does continue to diurese. I would add back Aldactone that he was previously on and continue Lasix. We have continued preload reduction with nitrates which he has been tolerating. 3. History of chronic venous stasis with chronic veno-occlusive disease. Again patient is on chronic Coumadin therapy with an INR goal between 2 and 3. He has a [place] filter in place.
[2016-11-06] MEDS: ALDACTONE PO SCH (17:57)
[2016-11-06] MEDS: COUMADIN PO SCH (22:20)
--- NOTE | 2016-11-07 06:51 | EKG Report ---
Test Performed on : 11/07/2016 05:52:30 AM Test Reason : afib, sinus pauses Blood Pressure : / mmHG Vent. Rate : 064 BPM Atrial Rate : 256 BPM P-R Int : 000 ms QRS Dur : 178 ms QT Int : 486 ms P-R-T Axes : 190 177 015 degrees QTc Int : 501 ms Suspect arm lead reversal, interpretation assumes no reversal Atrial flutter. with 4:1 AV conduction. Right bundle branch block , plus right ventricular hypertrophy Abnormal ECG When compared with ECG of 01-NOV-2016 06:11, No significant change was found No Limb Lead Reversal - FAVS Confirmed by Sadiq DAY, MDl Shay ([id number]) on 11/07/2016 1:44:48 PM
[2016-11-07 06:53] LABS: INR 2.69; PROTIME 28.8 Seconds (9.2-11.7)
[2016-11-07] MEDS: FOLIC ACID PO SCH (10:01)
[2016-11-07] MEDS: MUCINEX PO SCH ×2 (10:01→23:10)
[2016-11-07] MEDS: ISORDIL PO SCH ×2 (10:01→23:12)
[2016-11-07] MEDS: ALDACTONE PO SCH (10:01)
[2016-11-07] MEDS: LOPRESSOR PO SCH ×2 (10:01→23:13)
[2016-11-07] MEDS: LASIX IV SCH ×2 (10:02→23:09)
[2016-11-07] MEDS: LOVENOX SUBQ SCH ×2 (10:02→23:09)
[2016-11-07] MEDS: VITAMIN D PO SCH (15:31)
[2016-11-07] MEDS ORDERED: EUCERIN LOTION TOP SCH (16:10)
--- NOTE | 2016-11-07 16:21 | PROGRESS NOTE ---
DATE: 11/07/2016 SUBJECTIVE: Mr. Cohen is feeling better. Breathing is comfortable. He can tell the swelling has gone down in his scrotum and his leg still has a Stuart catheter in place. OBJECTIVE: Vital signs: Remains afebrile. Temperature 98.2 degrees, pulse 94, respirations 20, blood pressure 113/68. Lungs: Are clear in all lung maldonado. Cardiovascular: Regular rhythm and rate without murmur or S3. Abdomen: Soft. Skin: Is warm and dry. : Urine output was 1800 mL. LABORATORY: Unremarkable on the . I will probably check some labs tomorrow. Serum creatinine 1.1. His urine output has been excellent. He has had over 10 L out since the . ASSESSMENT AND PLAN: 1. Anasarca, scrotal swelling. Improved. Still has Stuart catheter in. Continue to diurese. Renal function looks good. 2. Renal function. Serum creatinine stable. Good urine output. He has probably had between 10 and 12 L in the last 5 days. 3. Chronic venous stasis. Chronic venous stasis dermatosis. We will try some Eucerin cream swelling is gone down. Skin looks better. 4. [place] filter as stated in history. Continue his Coumadin. Follow his ProTime. We have made some adjustments. His ProTime today was 28 so I am going to keep Coumadin where it is right now.
[2016-11-07] MEDS: COUMADIN PO SCH (23:12)
[2016-11-08] MEDS: NORCO-7.5 PO PRN ×2 (00:28→10:09)
[2016-11-08] MEDS: ISORDIL PO SCH (09:51)
[2016-11-08] MEDS: ALDACTONE PO SCH (09:51)
[2016-11-08] MEDS: LOVENOX SUBQ SCH ×2 (09:51→22:54)
[2016-11-08] MEDS: FOLIC ACID PO SCH (09:51)
[2016-11-08] MEDS: MUCINEX PO SCH ×2 (09:51→22:54)
[2016-11-08] MEDS: LASIX IV SCH ×2 (09:52→22:54)
[2016-11-08] MEDS: LOPRESSOR PO SCH ×2 (09:52→09:54)
[2016-11-08] MEDS: EUCERIN CREAM TOP SCH ×2 (11:00→22:55)
[2016-11-08] MEDS ORDERED: DULCOLAX PR PRN (13:39)
--- NOTE | 2016-11-08 13:57 | PROGRESS NOTE ---
DATE: 11/08/2016 SUBJECTIVE: Mr. Cohen is better. Swelling has going down. He still has his Stuart catheter in. He is eating well. He does complain that he has not had a bowel movement in several days. OBJECTIVE: Vital signs: Afebrile temp 98.1 degrees, pulse 70, respirations 18, blood pressure 101/62. Lungs: Clear in all lung maldonado. Cardiovascular: Regular rhythm and rate without murmur or S3. Abdomen: Soft. Skin: Warm and dry. Intake and output: Good urine output. He continues to diurese very well and he got close to a liter off yesterday. LAB: White count 6,200, hematocrit 35, platelet count 273,000. Sodium 137, potassium 3.8, chloride 92, bicarb 33, BUN 17, creatinine 1.1. ASSESSMENT AND PLAN: 1. Anasarca, chronic venous stasis, diastolic dysfunction. Continue to diurese. 2. Renal function. Holding its own. 3. Chronic venous stasis dermatosis. His legs are looking better. Will continue topical care. 4. History of [place] filter. 5. Constipation. I am going to try him on some lactulose and maybe add some Colace as well to his regimen. Today will give some milk of magnesia and Dulcolax to see it helps. He is on Coumadin. His coagulation for protime yesterday was 28 on Coumadin, so we will continue to follow this.
[2016-11-08] MEDS: MILK OF MAGNESIA PO SCH (16:26)
[2016-11-08] MEDS: COLACE PO SCH ×2 (16:27→22:54)
[2016-11-08] MEDS: LACTULOSE PO SCH ×2 (16:27→22:54)
[2016-11-08] MEDS: COUMADIN PO SCH (22:54)
[2016-11-09] MEDS: ISORDIL PO SCH ×3 (02:28→20:14)
[2016-11-09] MEDS: LOPRESSOR PO SCH ×3 (02:28→20:15)
[2016-11-09] MEDS: NORCO-7.5 PO PRN (05:05)
[2016-11-09 05:52] LABS: AGAP 8; BUN 14 mg/dL (8-22); CALCIUM 8.9 mg/dL (8.8-10.2); CHLORIDE 95 mmol/L (98-107); COSMO 281; MAGNESIUM 1.8 mg/dL (1.5-2.7); SODIUM 141 mmol/L (136-145); TCO2 38 mmol/L (25-35)
[2016-11-09] MEDS: LACTULOSE PO SCH ×2 (08:34→20:14)
[2016-11-09] MEDS: MILK OF MAGNESIA PO SCH (08:34)
[2016-11-09] MEDS: LOVENOX SUBQ SCH ×2 (08:36→20:14)
[2016-11-09] MEDS: LASIX IV SCH ×2 (08:37→20:14)
[2016-11-09] MEDS: COLACE PO SCH ×2 (08:40→20:13)
[2016-11-09] MEDS: FOLIC ACID PO SCH (08:40)
[2016-11-09] MEDS: MUCINEX PO SCH ×2 (08:40→20:13)
[2016-11-09] MEDS: ALDACTONE PO SCH (08:40)
[2016-11-09] MEDS: EUCERIN CREAM TOP SCH (08:44)
--- NOTE | 2016-11-09 12:36 | PROGRESS NOTE ---
DATE: 11/09/2016 SUBJECTIVE: Mr. Cohen is definitely improving. The swelling in his legs and scrotum have gone down. Breathing is comfortable. He is getting stronger. He has chronic venous stasis dermatosis with mainly eczematous changes/chronic eczema in symmetrical distribution of lower extremities. PHYSICAL EXAMINATION: Vital Signs: Temperature 98.1 degrees, pulse 56, respirations 20, blood pressure 121/76. Lungs are clear in all lung maldonado. Cardiovascular: Regular rate without murmur or S3. Abdomen is soft. Skin is warm and dry. Good urine output. 2000 mL. LABORATORIES: Reviewed. Sodium 141, potassium 4.0, chloride 95, bicarb 38. BUN 14, creatinine 1.1. Calcium 8.9. ASSESSMENT AND PLAN: 1. Anasarca venous stasis combined with a history of [place] filter and, I believe, some diastolic dysfunction. Responding to diuresis well. Fluid is going down. Still has Stuart catheter. 2. Renal function holding good. A good GFR. Diuresing well. 3. Chronic venous stasis dermatosis, [place] filter. Chronic venous stasis dermatosis. Continue topical care. Continue physical therapy. Hopefully, we can get him home the first of next week. Making progress. He does not want to go back to rehab. He is also on chronic Coumadin and his last PT was 28. I think I will decrease Coumadin down just a little bit. REVIEW OF HIS OTHER ORDERS: I do not see anything else to change right now. With his Coumadin, he is on 3 mg at bedtime. I think I will cut him down to 2.5 daily.
[2016-11-09] MEDS: COUMADIN PO SCH (20:13)
[2016-11-10] MEDS: EUCERIN CREAM TOP SCH ×3 (00:06→22:25)
[2016-11-10] MEDS: LASIX IV SCH ×2 (09:02→22:24)
[2016-11-10] MEDS: LACTULOSE PO SCH ×2 (09:04→22:24)
[2016-11-10] MEDS: MILK OF MAGNESIA PO SCH (09:04)
[2016-11-10] MEDS: LOVENOX SUBQ SCH (09:06)
[2016-11-10] MEDS: MUCINEX PO SCH ×2 (09:08→22:23)
[2016-11-10] MEDS: FOLIC ACID PO SCH (09:08)
[2016-11-10] MEDS: ALDACTONE PO SCH (09:08)
[2016-11-10] MEDS: COLACE PO SCH ×2 (09:08→22:23)
[2016-11-10] MEDS: ISORDIL PO SCH ×2 (09:09→22:24)
[2016-11-10] MEDS: LOPRESSOR PO SCH ×2 (09:09→22:23)
--- NOTE | 2016-11-10 11:49 | PROGRESS NOTE ---
DATE: 11/10/2016 SUBJECTIVE: He feels good today. He did have a large bowel movement and feels much better. The swelling in his legs and scrotum have gone down. He is getting a little stronger so he is encouraged by that. OBJECTIVE: Vital Signs: Temperature 97.4 degrees, pulse 92, respirations 20, blood pressure 101/61. EYES: Pupils are equal and round. Lungs are clear in all lung [place]onado. Cardiovascular: Regular rhythm and rate without murmur or S3. Abdomen is soft. Skin is warm and dry. Good urine output: 3300 mL. LABORATORY DATA: Lab reviewed from 10/30/2016: Serum creatinine 1.1 and stable. ASSESSMENT AND PLAN: 1. Anasarca and chronic venous stasis dermatosis. She has a [place] filter and diastolic dysfunction. Diuresing well and continues to improve. 2. Renal function holding steady. 3. General weakness, deconditioning, obesity. Continue physical therapy. Continue topical care for his venous stasis, scrotal swelling going down. He still has a Stuart catheter and would like to get the Stuart catheter out when the swelling goes down. Continue to follow his Coumadin. His ProTime was 28, so we will check that again as well as electrolytes and CBC. His thyroid looks okay.
[2016-11-10] MEDS: NORCO-7.5 PO PRN (12:12)
[2016-11-10] MEDS: COUMADIN PO SCH (22:24)
[2016-11-11] MEDS: LOVENOX SUBQ SCH ×3 (06:57→20:59)
[2016-11-11 07:09] LABS: AGAP 10; BUN 11 mg/dL (8-22); CALCIUM 8.5 mg/dL (8.8-10.2); CHLORIDE 91 mmol/L (98-107); COSMO 273; POTASSIUM 4.3 mmol/L (3.5-5.1); SODIUM 137 mmol/L (136-145); TCO2 36 mmol/L (25-35)
[2016-11-11 09:06] LABS: INR 1.75; PROTIME 18.7 Seconds (9.2-11.7)
--- NOTE | 2016-11-11 09:56 | PROGRESS NOTE ---
DATE: 11/11/2016 SUBJECTIVE: Mr. Cohen is feeling better. Swelling has gone down. Feels a little stronger. Eating well. PHYSICAL EXAMINATION: Vital Signs: Temperature 98.6 degrees, pulse 90, respirations 22, blood pressure 120/78. Lungs: Clear in all lung maldonado. CVP less than 6 cm. Cardiovascular Examination: Regular rhythm and rate without murmur or S3. Abdomen: Soft. Skin: Is warm and dry. Is and Os: Good urine output. Still continues to diurese. LABORATORY DATA: Lab reviewed from yesterday. Electrolytes okay. Serum creatinine 0.9. Prothrombin time was 18.7. ASSESSMENT AND PLAN: 1. Anasarca, chronic venous stasis dermatosis with [place] filter, diastolic dysfunction, diuresing. Continues to diurese well. Making good progress. Decreasing extracellular fluid volume. Decreasing scrotal swelling and general anasarca. 2. Renal function, stable. 3. General weakness. Continue physical therapy. 4. Review of orders. I do not see any changes. He is on Coumadin 2.5 mg at bedtime, lactulose 30 mL twice a day. Noted, he has had a couple of bowel movements, no longer constipated. Docusate 100 mg twice a day, spironolactone 25 mg a day, Lopressor 25 mg twice a day, Lasix 40 mg intravenous twice a day, isosorbide dinitrate 10 mg twice a day.
[2016-11-11] MEDS: MILK OF MAGNESIA PO SCH (10:40)
[2016-11-11] MEDS: LACTULOSE PO SCH ×2 (10:40→20:59)
[2016-11-11] MEDS: MUCINEX PO SCH ×2 (10:40→20:59)
[2016-11-11] MEDS: COLACE PO SCH ×2 (10:41→20:59)
[2016-11-11] MEDS: LASIX IV SCH ×2 (10:41→20:59)
[2016-11-11] MEDS: EUCERIN CREAM TOP SCH ×2 (10:48→21:00)
[2016-11-11] MEDS: FOLIC ACID PO SCH (18:11)
[2016-11-11] MEDS: ALDACTONE PO SCH (18:11)
[2016-11-11] MEDS: ISORDIL PO SCH ×2 (18:11→21:00)
[2016-11-11] MEDS: LOPRESSOR PO SCH ×2 (18:11→21:00)
[2016-11-11] MEDS: COUMADIN PO SCH (20:59)
[2016-11-11] MEDS: NORCO-7.5 PO PRN (20:59)
[2016-11-12] MEDS: NORCO-7.5 PO PRN ×2 (03:54→12:50)
[2016-11-12] MEDS: LASIX IV SCH ×2 (10:31→21:34)
[2016-11-12] MEDS: LACTULOSE PO SCH ×2 (10:31→21:33)
[2016-11-12] MEDS: COLACE PO SCH ×2 (10:31→21:33)
[2016-11-12] MEDS: MILK OF MAGNESIA PO SCH (10:31)
[2016-11-12] MEDS: LOVENOX SUBQ SCH ×2 (10:31→21:38)
[2016-11-12] MEDS: MUCINEX PO SCH ×2 (10:32→21:33)
--- NOTE | 2016-11-12 12:45 | PROGRESS NOTE ---
DATE: 11/12/2015 SUBJECTIVE: Mr. Cohen is doing better. Swelling is going down in the scrotum. Swelling going down as well. OBJECTIVE: Vital signs: Temp 98.1 degrees, pulse 113, respirations 18, blood pressure 113/75. Lungs: Clear in all lung maldonado. Cardiovascular: Regular rhythm and rate without murmur or S3. Abdomen: Soft. Skin: Warm and dry. Intake and output: Good urine output, above 3 L. LAB: Reviewed from the . Electrolytes today sodium 137, potassium 4.3, chloride 91, bicarb 36, BUN 11, creatinine 0.9. ASSESSMENT AND PLAN: 1. Anasarca. Diuresing off extracellular fluid volume. Doing well. Decreased swelling. Clinically improved. He has chronic venous stasis and chronic venous stasis dermatosis. He has a [place] filter and diastolic dysfunction. Continue present diuresis. Scrotal swelling in particular has gone down. Will see if we can get an elastic scrotal pouch to kind of help get the fluid down. 2. Renal function, stable. 3. General weakness, deconditioning. Improving with physical therapy. His goal is to try and go home. 4. Still has a Stuart catheter in. We will not try and take that out until the scrotal swelling is down. 5. He is on Coumadin 2.5 at bedtime. Following his protime. His PT yesterday was 18. Will check that again in the morning. 6. Constipation, which has resolved.
[2016-11-12] MEDS: EUCERIN CREAM TOP SCH ×2 (14:30→21:33)
[2016-11-12] MEDS: ALDACTONE PO SCH (14:31)
[2016-11-12] MEDS: FOLIC ACID PO SCH (14:31)
[2016-11-12] MEDS: LOPRESSOR PO SCH ×2 (14:31→21:34)
[2016-11-12] MEDS: ISORDIL PO SCH ×2 (14:31→21:34)
[2016-11-12] MEDS: COUMADIN PO SCH (21:33)
[2016-11-13] MEDS: NORCO-7.5 PO PRN ×4 (02:26→22:21)
[2016-11-13 06:19] LABS: AGAP 7; BUN 11 mg/dL (8-22); CHLORIDE 91 mmol/L (98-107); COSMO 273; POTASSIUM 4.2 mmol/L (3.5-5.1); SODIUM 137 mmol/L (136-145); TCO2 39 mmol/L (25-35)
[2016-11-13 06:29] LABS: INR 1.42; PROTIME 15.1 Seconds (9.2-11.7)
[2016-11-13] MEDS: LASIX IV SCH ×2 (09:25→21:14)
[2016-11-13] MEDS: LACTULOSE PO SCH ×2 (09:25→21:14)
[2016-11-13] MEDS: COLACE PO SCH ×2 (09:25→21:14)
[2016-11-13] MEDS: MILK OF MAGNESIA PO SCH (09:25)
[2016-11-13] MEDS: MUCINEX PO SCH ×2 (09:26→21:14)
[2016-11-13] MEDS: LOVENOX SUBQ SCH ×4 (09:26→21:14)
[2016-11-13] MEDS: LOPRESSOR PO SCH ×2 (10:02→21:14)
[2016-11-13] MEDS: EUCERIN CREAM TOP SCH ×2 (10:02→21:14)
[2016-11-13] MEDS: ALDACTONE PO SCH (10:02)
[2016-11-13] MEDS: FOLIC ACID PO SCH (10:03)
[2016-11-13] MEDS: ISORDIL PO SCH ×2 (10:03→21:14)
[2016-11-13] MEDS: COUMADIN PO SCH (21:14)
[2016-11-14] MEDS: NORCO-7.5 PO PRN ×4 (02:42→18:58)
[2016-11-14] MEDS: DUONEB (A & A) INH PRN (07:27)
[2016-11-14] MEDS: ALDACTONE PO SCH (10:41)
[2016-11-14] MEDS: LOVENOX SUBQ SCH ×3 (10:42→22:20)
[2016-11-14] MEDS: LASIX IV SCH ×2 (10:42→22:20)
[2016-11-14] MEDS: ISORDIL PO SCH ×2 (10:42→22:21)
[2016-11-14] MEDS: MILK OF MAGNESIA PO SCH (10:43)
[2016-11-14] MEDS: LOPRESSOR PO SCH ×2 (10:43→22:20)
[2016-11-14] MEDS: FOLIC ACID PO SCH (10:43)
[2016-11-14] MEDS: LACTULOSE PO SCH ×2 (10:43→22:20)
[2016-11-14] MEDS: MUCINEX PO SCH ×2 (10:44→22:20)
[2016-11-14] MEDS: COLACE PO SCH ×2 (10:44→22:20)
[2016-11-14] MEDS: EUCERIN CREAM TOP SCH ×2 (10:44→22:21)
[2016-11-14] MEDS: VITAMIN D PO SCH (14:58)
--- NOTE | 2016-11-14 15:58 | PROGRESS NOTE ---
DATE: 11/14/2016 SUBJECTIVE: Mr. Cohen still continues with some swelling. He is having some pain in his left hip and he is concerned it is a similar pain he had before with DVT. We did noninvasive studies, he has clot in both legs. Of course, he has an inferior vena cava filter. I am going to increase his Lovenox to 120 mg subcutaneously b.i.d., awaiting on his Coumadin to become therapeutic as well. Continue to try and diurese. We will bump up his Coumadin, I think, to 4 mg at bedtime, and see how we do, and add the high dose Lovenox. OBJECTIVE: Vital Signs: Exam today, temperature 98.4 degrees, pulse 128, respirations 18, blood pressure 102/77. HEENT: Pupils are equal, round. Lungs: Clear in all lung maldonado. Cardiovascular: Regular rate without murmur or S3. Abdomen: Soft. Extremities/Genitalia: His pedal edema and scrotal edema have the diminished quite a bit. Urine output: Was almost 2 L again last night. LABORATORY: Serum creatinine doing well at 0.8. Hematocrit was 35 on the . We will check a CBC again. ASSESSMENT AND PLAN: 1. Anasarca, chronic venous stasis, bilateral deep venous thromboses. Has a [place] filter. Increased his Lovenox. Continue his Coumadin. May need to adjust Coumadin up to try to keep his ProTime above 2.5. 2. Renal function. Stable. 3. General weakness, deconditioning. Will continue physical therapy. 4. [place] catheter in. I am not taking it out until his gross swelling goes down. 5. Constipation, which was resolved. 6. He is eating pretty well. REVIEW OF HIS ORDERS: I do not know if there is any change. I will bump up his Coumadin to 4 mg at bedtime.
[2016-11-14] MEDS ORDERED: COUMADIN PO SCH (21:00)
[2016-11-15] MEDS: NORCO-7.5 PO PRN ×3 (02:38→17:12)
[2016-11-15 05:50] LABS: MANUAL DIFF NEEDED? NO
[2016-11-15 05:58] LABS: BASO% 0.3 % (0.0-0.8); EOS# 0.21 X1000 (0.0-0.7); EOS% 3.1 % (0.0-10.0); HEMOGLOBIN 10.4 g/dL (14.0-18.0); LYMPH# 1.06 X1000 (1.2-3.4); LYMPH% 15.4 % (20.5-51.1); MCH 31.2 PG (27-31); MCHC 31.5 g/dL (33-37); MCV 99.1 FL (81-99); MONO# 0.92 X1000 (0.11-0.59); MONO% 13.4 % (1.7-9.3); MPV 10.8 FL (7.4-10.4); NEUT% 67.8 % (42.2-75.2); PLT 253 X1000 (130-400); RBC 3.33 XMIL (4.7-6.1)
[2016-11-15 06:07] LABS: INR 1.39; PROTIME 14.8 Seconds (9.2-11.7)
[2016-11-15 06:21] LABS: AGAP 11; BUN 14 mg/dL (8-22); CALCIUM 9.2 mg/dL (8.8-10.2); CHLORIDE 88 mmol/L (98-107); COSMO 268; MAGNESIUM 2.2 mg/dL (1.5-2.7); POTASSIUM 4.4 mmol/L (3.5-5.1); SODIUM 134 mmol/L (136-145); TCO2 35 mmol/L (25-35)
[2016-11-15 06:27] LABS: FREE T4 1.21 ng/dL (0.93-1.70)
[2016-11-15] MEDS: COLACE PO SCH ×2 (09:37→20:36)
[2016-11-15] MEDS: MUCINEX PO SCH ×2 (09:38→20:36)
[2016-11-15] MEDS: ISORDIL PO SCH ×2 (09:38→20:36)
[2016-11-15] MEDS: FOLIC ACID PO SCH (09:38)
[2016-11-15] MEDS: MILK OF MAGNESIA PO SCH (09:38)
[2016-11-15] MEDS: LACTULOSE PO SCH ×2 (09:38→20:35)
[2016-11-15] MEDS: ALDACTONE PO SCH (09:38)
[2016-11-15] MEDS: LASIX IV SCH ×2 (09:38→20:35)
[2016-11-15] MEDS: EUCERIN CREAM TOP SCH ×2 (09:46→20:29)
[2016-11-15] MEDS: LOPRESSOR PO SCH ×2 (09:47→20:36)
[2016-11-15] MEDS: LOVENOX SUBQ SCH ×3 (11:45→23:47)
--- NOTE | 2016-11-15 16:51 | Extremity Venous Study ---
PROCEDURE NAME: Venous U/S Bilateral Legs - 11/14/2016 PROCEDURE: Bilateral lower extremity venous duplex and color flow imaging study. EQUIPMENT: Satispayid E 9 ultrasound system with a 9 L-D transducer. DATE OF OPERATION: 11/14/2016. REFERRING PHYSICIAN: Dr. Gee. IDENTIFICATION: A 65-year-old male in room 450-A. MECHANIC CHIEF: Chris Cartwright RVT. INDICATIONS: Swelling of the limb, M 79.89. FINDINGS: The right common femoral vein and its branches, the deep and superficial femoral veins were satisfactorily imaged. There was evidence of acute deep venous thrombosis involving the right superficial femoral vein extending more distally into the popliteal vein and the small veins below the right knee. The superficial veins in the right lower extremity were compressible throughout their length. The left common femoral vein and its branches, deep and superficial femoral veins were also satisfactory imaged, and again there is evidence of acute deep venous thrombosis involving the superficial femoral vein and extending distally into the left popliteal vein and the small veins below the left knee. The superficial veins of the left lower extremity were compressible. INTERPRETATION: Bilateral long segment acute deep venous thrombosis involving both lower extremities as described above. There is no evidence of superficial venous thrombosis involving the bilateral lower extremities.
[2016-11-15] MEDS ORDERED: MILK OF MAGNESIA PO ONE (16:54)
--- NOTE | 2016-11-15 17:27 | PROGRESS NOTE ---
DATE: 11/15/2016 He states he has not had a bowel movement since yesterday and wants a little something to help. The left side and the lateral hip discomfort and fullness is about the same. PHYSICAL EXAMINATION: Vital Signs: Temperature 97.8 degrees, pulse 98, respirations 20, blood pressure 114/78. Lungs: Clear in all lung maldonado. Cardiovascular: Regular rhythm and rate without murmur or S3. Good urine output. LAB: White count 6880, hematocrit 33, platelet count 253,000. Sodium 134, potassium 4.4, chloride 88, BUN 14, creatinine 0.9. Liver functions unremarkable. Pro-BMP was 5754. ASSESSMENT AND PLAN: 1. Anasarca with chronic venous stasis. Bilateral deep venous thrombosis. Has [place] filter. They have increased his Lovenox. He has got bilateral DVTs. Continue to adjust his Coumadin and get that therapeutic. I would like to keep pro time above 2.5. 2. Renal function stable. 3. General weakness, deconditioning. Continue physical therapy. 4. [place] catheter in. Had a swallow scrotum. Plan on taking this out when the scrotal swelling has gone down. 5. Constipation, resolved. 6. He is eating pretty well. 7. Reviewed orders. I do not see any change at this point. We will try some milk of magnesia and he is already on Docusate and see if that will help his bowels.
[2016-11-15] MEDS: COUMADIN PO SCH (20:36)
[2016-11-16 07:45] LABS: INR 1.58; PROTIME 16.8 Seconds (9.2-11.7)
[2016-11-16] MEDS: LASIX IV SCH ×2 (09:59→22:25)
[2016-11-16] MEDS: MILK OF MAGNESIA PO SCH (09:59)
[2016-11-16] MEDS: LACTULOSE PO SCH ×2 (09:59→22:26)
[2016-11-16] MEDS: COLACE PO SCH ×2 (09:59→22:25)
[2016-11-16] MEDS: ALDACTONE PO SCH (09:59)
[2016-11-16] MEDS: FOLIC ACID PO SCH (09:59)
[2016-11-16] MEDS: MUCINEX PO SCH ×2 (09:59→22:26)
[2016-11-16] MEDS: LOPRESSOR PO SCH ×2 (09:59→22:27)
[2016-11-16] MEDS: ISORDIL PO SCH ×2 (10:00→22:27)
[2016-11-16] MEDS: EUCERIN CREAM TOP SCH ×2 (10:00→22:27)
[2016-11-16] MEDS: NORCO-7.5 PO PRN ×2 (11:45→22:26)
[2016-11-16] MEDS: LOVENOX SUBQ SCH ×2 (11:46→22:25)
--- NOTE | 2016-11-16 17:20 | PROGRESS NOTE ---
DATE: 11/16/2016 SUBJECTIVE: Mr. Cohen is feeling better. The left-sided pain is better and some of that in the left lower quadrant. The constipation is improved. He has had several bowel movements. So he does feel better. Breathing is comfortable. He is getting stronger. OBJECTIVE: VITAL SIGNS: Temperature is 97.9 degrees, pulse 112, respirations 16, blood pressure 105/60. Pupils are equal, round. CVP less than 6 cm.Lungs: Clear in all lung maldonado. Cardiovascular: Regular rhythm and rate without murmur or S3. Abdomen: Soft. URINE OUTPUT: Yesterday was 1800 mL. Good urine output today as well. ASSESSMENT AND PLAN: 1. Anasarca. Chronic venous stasis. Inferior vena cava filter. Making progress and continues to diurese. 2. Bilateral deep vein thromboses. I have increased his Lovenox. Awaiting the Coumadin to become therapeutic. 3. Swelling below the waist and scrotum necessitating a [place] catheter. The swelling is going down. Hopefully can discontinue the catheter the first of the week. 4. Constipation resolving. 5. General weakness and deconditioning. Continue physical therapy. I am pleased with his improvement and decreased in volume.
[2016-11-16] MEDS: COUMADIN PO SCH (22:26)
[2016-11-17] MEDS: NORCO-7.5 PO PRN ×2 (03:39→22:22)
[2016-11-17 06:24] LABS: INR 1.64; PROTIME 17.5 Seconds (9.2-11.7)
[2016-11-17] MEDS: LOPRESSOR PO SCH ×2 (10:02→22:22)
[2016-11-17] MEDS: ALDACTONE PO SCH (10:03)
[2016-11-17] MEDS: COLACE PO SCH ×2 (10:03→22:22)
[2016-11-17] MEDS: FOLIC ACID PO SCH (10:03)
[2016-11-17] MEDS: ISORDIL PO SCH ×2 (10:04→22:23)
[2016-11-17] MEDS: LACTULOSE PO SCH ×2 (10:04→22:22)
[2016-11-17] MEDS: LASIX IV SCH ×2 (10:04→22:22)
[2016-11-17] MEDS: MUCINEX PO SCH ×2 (10:05→22:22)
[2016-11-17] MEDS: MILK OF MAGNESIA PO SCH (10:05)
--- NOTE | 2016-11-17 11:55 | PROGRESS NOTE ---
DATE: 11/17/2016 SUBJECTIVE: Mr. Cohen is feeling better, sitting on the side of the bed, breathing comfortably. He is encouraged. Fluid level is going down. His legs feel a little better. Left side less tense. He has had a bowel movement almost every day. OBJECTIVE: Vital signs: Temperature 97.3 degrees. Pulse 76. Respirations 14. Blood pressure 112/68. Lungs: Clear anterior, posterior, and lateral. Cardiovascular: Regular rhythm and rate without murmur or S3. INTAKE AND OUTPUT: Urine output was good, with almost 2 L again yesterday. LABORATORY DATA: We checked on the , I will check some more tomorrow but steady diuresis. Pro BMP I checked on the 80. ASSESSMENT AND PLAN: 1. Anasarca, chronic venous stasis, inferior vena cava filter. Making progress with diuresis. Stuart catheter still in place. Scrotum swelling is going down. 2. Bilateral deep venous thrombosis and inferior vena cava filter on high dose Lovenox. 3. Constipation, resolved. 4. General weakness, deconditioning. Improving. Continue present orders and present treatment. REVIEW OF ORDERS: Lovenox 120 mg subcutaneous q.12 hours. Coumadin 7.5 at bedtime. ProTime is 17.5, so, it is coming up.
[2016-11-17] MEDS: EUCERIN CREAM TOP SCH ×2 (11:59→22:23)
[2016-11-17] MEDS: LOVENOX SUBQ SCH ×2 (12:03→22:22)
[2016-11-17] MEDS: COUMADIN PO SCH (22:22)
[2016-11-18] MEDS: NORCO-7.5 PO PRN ×2 (03:03→06:39)
[2016-11-18 05:02] VITALS: BP 99/53
[2016-11-18 05:35] LABS: AGAP 9; BUN 17 mg/dL (8-22); CALCIUM 8.9 mg/dL (8.8-10.2); CHLORIDE 91 mmol/L (98-107); COSMO 272; MAGNESIUM 2.1 mg/dL (1.5-2.7); POTASSIUM 4.6 mmol/L (3.5-5.1); SODIUM 135 mmol/L (136-145); TCO2 35 mmol/L (25-35)
[2016-11-18] MEDS: DUONEB (A & A) INH PRN (06:45)
[2016-11-18] MEDS: LASIX IV SCH (06:54)
[2016-11-18] MEDS ORDERED: NS 1,000 ML ONE (10:28)
--- NOTE | 2016-11-18 10:32 | Diag Imaging Result Document ---
PROCEDURE NAME: CHEST-PORTABLE - 11/18/2016 SINGLE FRONTAL RADIOGRAPH OF THE CHEST: COMPARISON: 10/24/2016. FINDINGS: There has been development of a very dense consolidation in the right mid lung zone suggesting pneumonia. There is also interstitial thickening bilaterally that was also seen on the previous study indicating a component of interstitial edema that has worsened slightly. Pulmonary venous congestion is noted. There is stable cardiomegaly. IMPRESSION: Slight worsening of pulmonary edema and development of a dense infiltrate in the right mid lung zone, worrisome for pneumonia. Followup radiograph is recommended.
[2016-11-18] MEDS ORDERED: EPINEPHRINE 4 MG in NS 250 ML IV ONE (11:00)
[2016-11-18] MEDS ORDERED: LEVOPHED 8 MG in D5 1/2 NS 250 ML IV ONE (11:00)
--- NOTE | 2016-11-18 11:13 | PROVIDER DOCUMENTATION ---
HPI-Critical Care - General Chief Complaint: Male Stated Complaint: male gu, cellulitis to lower extremity Time Seen by Provider: 10/31/16 11:15 Patient arrived via EMS?: No Allergies/Adverse Reactions: Allergies Allergy/AdvReac Type Severity Reaction Status Date / Time Penicillins Allergy RASH Verified 10/31/16 11:16 Home Medications: Albuterol 2.5MG/Ipratrop 0.5MG [Duoneb (A & A)] 3 ml INH RTTID 10/10/16 Furosemide [Lasix] 80 mg PO DAILY 10/10/16 Guaifenesin [Mucus ER] 600 mg PO BID 10/10/16 Hydrocodone/Acetaminophen [[place] 7.5-325 Tablet] 1 each PO Q4-6H PRN PRN - History of Present Illness-Critical Care Nature of Presenting Problem: 65 yo WM code blue in room 450. No history per floor staff. He was pulseless with electrical activity. When I arrived they had given epi and started CPR. 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 EMS Initial HR: 130 EMS Initial BP: none EMS Initial EKG Rhythm: PEA/irreg tach Pre-hospital Treatment: Initiated BVM, Initiated CPR, Initiated epinephrine Associated Symptoms: reports: vomiting Loss of Consciousness: prolonged (minutes) - Cardiopulmonary Resuscitation Witnessed arrest?: No Noted by:: nurse Bystander CPR?: Yes Reason for Code Blue?: unresponsive CPR initiated before doctor arrival?: Yes Initial Findings: PEA Tachy Treatment initiated prior to doctor arrival?: Initiated BVM, Initiated CPR/ thumper, Initiated epinephrine #mg - Pronouncement Private provider notified?: Yes Review of Systems - Adult - REVIEW OF SYSTEMS - ADULT ROS:: unobtainable per condition Past History - Adult - PAST MEDICAL HISTORY-ADULT Review of Records: reports: Nursing Assessment Review Major Childhood Illnesses: reports: denies history Cardiovascular: reports: A-Fib, blood clots, CHF, HTN Respiratory: reports: COPD - PRIOR SURGERIES/PROCEDURES Surgical/Procedure History: reports: hernia repair - IMMUNIZATION STATUS Childhood Immunizations: See Nurse Assessment Flu Vaccine: See Nurse Assessment - FAMILY HISTORY Family History: reviewed, not pertinent - SOCIAL HISTORY Living Situation: alone Physical Exam-General - PHYSICAL EXAM-ADULT Exam Limited by: respiratory arrest Initial Vital Signs Reviewed: Yes - CONSTITUTIONAL General Appearance: severe distress, obtunded - HEAD, EARS, NOSE, MOUTH & THROAT HENMT: other (vomitus in mouth) - RESPIRATORY Respiratory: respiratory distress, crackles, rales, other (arrest) - CARDIOVASCULAR Cardiovascular: JVD, tachycardia - MUSCULOSKELETAL Extremity: pedal edema, swelling Procedures - INTUBATION Time of Intubation: 10:55 Airway Evaluation: Obese Mallampati Class: 3 Intubation Method: orotracheal Equipment: ETT Tube Size (cm): 7.5 Pretreated with 100% Oxygen?: Yes Breath Sounds after Intubation: equal ETT Primary Tube Confirmation: Capnometry CO2 Change, Direct Visualization, Chest Rise and Fall, Tube placement verified on XRAY Intubation Complications: apparent aspiration, O2 saturation decreased Procedure Comment: hx of bilateral dvts and clogged ivc filter per hospitalist Departure - Departure Time of Disposition Order: 11:30 DIAGNOSIS: Scrotal edema CHF (congestive heart failure) Qualifiers: Congestive heart failure type: combined Congestive heart failure chronicity: acute Qualified Code(s): I50.41 - Acute combined systolic (congestive) and diastolic (congestive) heart failure Dvt femoral (deep venous thrombosis) Qualifiers: Laterality: bilateral Chronicity: chronic Qualified Code(s): I82.513 - 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
--- NOTE | 2016-11-18 11:27 | Diag Imaging Result Document ---
PROCEDURE NAME: CHEST-PORTABLE - 11/18/2016 SINGLE FRONTAL RADIOGRAPH OF THE CHEST: COMPARISON: 11/18/2016. FINDINGS: There has been interval placement of an ET tube. The tip projects over the trachea and above the lisa at about the T3 level. Otherwise, the chest is essentially stable as compared to the very recent previous study. IMPRESSION: Interval intubation as described and stable chest, otherwise.
[2016-11-18 11:42] LABS: AGAP 8; BUN 7 mg/dL (8-22); CALCIUM 2.7 mg/dL (8.8-10.2); CHLORIDE 124 mmol/L (98-107); COSMO 300; POTASSIUM 1.6 mmol/L (3.5-5.1); SODIUM 154 mmol/L (136-145); TCO2 22 mmol/L (25-35)
[2016-11-18 11:43] LABS: ALBUMIN 0.8 g/dL (3.5-5.0); ALKALINE PHOSPHATASE 35 U/L (32-122); GOT 10 U/L (10-34); GPT 5 U/L (10-44)
[2016-11-18] MEDS ORDERED: PITRESSIN 40 UNIT in NS 100 ML IV ONE (12:00)
--- NOTE | 2016-11-18 23:25 | DISCHARGE SUMMARY ---
ADMISSION DATE: 10/31/2016 DISCHARGE DATE: 11/18/2016 HOSPITAL COURSE: I saw Mr. Eddy about 7 o'clock this morning, and he states his breathing was fine, but he was panting for air. He recently had a chest x-ray. His night was pretty unremarkable. Denied any chest pain or nausea, felt that he just needed to settle down some. PHYSICAL EXAMINATION: vital signs: Temperature was 98.6, pulse has gone up to 120, respirations 18, blood pressure 99/53. Lungs: Clear but he did have tachypnea, and no real wheezing going on at this time. cardiovascular: Sinus tachycardia, regular rhythm. Abdomen: Soft, yet had good urine output yesterday. Urine output over 2 L. Shortly after that, about an hour later, his blood pressure dropped, and the breathing became agonal. A code blue was called. He had quite a bit junk in his throat and mouth, which was suctioned. He was intubated. Chest compressions were started as he went into asystole, appeared go break down, wide complex went into asystole. We gave him epinephrine, started him on an epinephrine drip, and started some Levophed, gave him a couple of amps of bicarb, as well as, intermittent epinephrine and chest compressions. We would get a wide complex back at times, with pulse, but would not last very long. Pulse continued, pressure continued to drop, and went back into asystole, and code was called. The patient pronounced . I suspect the cause of was from pulmonary thromboemboli. He had bilateral thrombus in both lower extremities, and he had a Jessica filter in, and he was on full anticoagulation, we were trying to diurese off his anasarca and extra fluid volume, was making pretty good progress, but I suspect that his was from advancement of pulmonary thromboemboli.
== END 2016-11-18 11:07 | disposition expired | DRG 291 ==
LOC: EDBD → ED 11:03 → 4N 13:50
PROVIDERS: ATTEND Emergency Medicine
PROC: 5A12012 Performance of Cardiac Output, Single, Manual (ICD-10-PCS; principal; 2016-11-18)
PROC: 0BH17EZ Insertion of Endotracheal Airway into Trachea, Via Natural or Artificial Opening (ICD-10-PCS; 2016-11-18)
DX: I50.32 Chronic diastolic (congestive) heart failure (principal); I26.99 Other pulmonary embolism without acute cor pulmonale; I82.413 Acute embolism and thrombosis of femoral vein, bilateral; I48.92 Unspecified atrial flutter; I27.2 Other secondary pulmonary hypertension; E66.01 Morbid (severe) obesity due to excess calories; I82.433 Acute embolism and thrombosis of popliteal vein, bilateral; J84.10 Pulmonary fibrosis, unspecified; Z99.81 Dependence on supplemental oxygen; K59.00 Constipation, unspecified; J44.9 Chronic obstructive pulmonary disease, unspecified; Z96.652 Presence of left artificial knee joint; I87.2 Venous insufficiency (chronic) (peripheral); R79.1 Abnormal coagulation profile; I48.0 Paroxysmal atrial fibrillation; I46.8 Cardiac arrest due to other underlying condition; Z86.718 Personal history of other venous thrombosis and embolism; Z86.711 Personal history of pulmonary embolism; Z79.01 Long term (current) use of anticoagulants; Z87.891 Personal history of nicotine dependence
CPT/HCPCS: 31500; 71010; 80048; 80053; 80162; 81001; 82550; 82607; 82746; 83605; 83735; 83880; 84134; 84439; 84443; 84484; 85025; 85610; 85730; 87088; 92950; 93005; 93010; 93970; 94640; 94761; 99282; J1170; J1650; J1940; J2405; J7030; 97001-GP; 97110-GP; 97530-GP